=== PATIENT | male | born 1970 | race Caucasian/White ===

== ENCOUNTER 2020-06-21 10:45 | Day surgery (SDC) | payer BC ==
[~2020-06-21 10:45] MED LIST: Sodium Chloride 0.9% 10 ML Syringe FLUSH PRN
[2020-06-21] MEDS: Lactated Ringers 1,000 ML IV SCH (11:00)
[2020-06-21] MEDS ORDERED: Propofol 200 MG/20 ML SDV ONE ×2 (11:50→12:49)
--- NOTE | 2020-06-21 15:03 | OR ---
DATE OF SURGERY: 06/21/2020. REFERRING PROVIDER: Dr. Steph Hawkins. PRE-OPERATIVE DIAGNOSIS: Screening colonoscopy. This is the patient's first colonoscopy. He denies any known family history of colon cancer. POST-OPERATIVE DIAGNOSES: 1. Single 2 mm polyp at 30 cm, removed using cold forceps. However, tissue sample was not able to be retrieved after forceps was removed as it seemingly came off as the forceps was brought back through the scope. There were no worrisome features to this tiny polyp. 2. Minimal sigmoid diverticulosis. 3. Normal-appearing distal ileum. PROCEDURE: Colonoscopy with polypectomy x1 using cold forceps. SURGEON: Héctor Alvarez M.D. ANESTHESIA: Monitored anesthesia care. BOWEL PREP: Good. Ramon is a 50-year-old male who was brought to the endoscopy suite after discussing risks and benefits of the procedure. Informed consent was obtained for conscious sedation and colonoscopy with or without biopsy and/or polypectomy. We also discussed possibility of missed lesions. Pre-procedure exam was unremarkable. IV, oxygen, and monitors were placed. The patient was placed in the left lateral decubitus position. Sedation was administered and a digital rectal exam was performed and unremarkable. Colonoscope was passed into the rectum and slowly advanced all the way to the cecum. Cecum was viewed and photographed. The ileocecal valve was intubated and distal ileum was normal in appearance. The colonoscope was slowly withdrawn and the mucosa was closed observed in a direct circumferential manner. The ascending colon was unremarkable. The transverse colon was unremarkable. The descending colon was unremarkable. The sigmoid colon revealed some minimal diverticulosis. There was 1 tiny 2 mm polyp noted at 30 cm. This was removed using 2 bites of the cold forceps. However, upon removal of the forceps through the scope, tissue sample was lost, not able to be retrieved for path. My suspicion is this either very small adenomatous polyp versus hyperplastic type polyp. Retroflexion was performed and rectal mucosa was unremarkable. Scope was removed. The patient tolerated the procedure well. The patient was monitored until that baseline status. Discharge instructions were reviewed and the patient was discharged in good condition. COMPLICATIONS: None. TOTAL TIME: 27 minutes. ESTIMATED BLOOD LOSS: Less than 1 mL. RECOMMENDATIONS/FOLLOW-UP: Given the single tiny polyp which was not able to be retrieved for path, I would recommend repeating colonoscopy in 6 to 7 years to be on the safe side. I would like to kindly thank Dr. Hawkins for this referral. DMB: 06/21/2020 13:48:38 MODL: 06/21/2020 14:47:01 /[id number]
== END 2020-06-21 14:10 | disposition home or self-care (01) ==
LOC: VM.SDS 10:45
PROVIDERS: ATTEND Family Medicine
DX: Z12.11 Encounter for screening for malignant neoplasm of colon (principal); K63.5 Polyp of colon; K57.30 Diverticulosis of large intestine without perforation or abscess without bleeding; M25.511 Pain in right shoulder; H91.93 Unspecified hearing loss, bilateral; Z79.899 Other long term (current) drug therapy; Z98.890 Other specified postprocedural states
CPT/HCPCS: 00812; J2704; J7120

== ENCOUNTER 2023-09-04 12:16 | Emergency (ER) | payer BC ==
[2023-09-04 12:40] LABS: BASOPHILS PERCENT AUTO 0.2 % (0.2-1.2); EOSINOPHILS ABSOLUTE AUTO 0.1 x10^3/uL (0.0-0.5); EOSINOPHILS PERCENT AUTO 1.3 % (0.0-4.0); HEMATOCRIT 43.7 % (40.0-52.0); HEMOGLOBIN 15.2 g/dL (14.0-18.0); LYMPHOCYTES ABSOLUTE AUTO 1.5 x10^3/uL (1.0-4.8); LYMPHOCYTES PERCENT AUTO 32.5 % (25.0-50.0); MEAN CORPUSCULAR HEMOGLOBIN 30.8 pg (26.0-32.0); MEAN CORPUSCULAR HGB CONC 34.8 g/dL (32.0-36.0); MEAN CORPUSCULAR VOLUME 88.6 fL (78.0-93.0); MONOCYTES ABSOLUTE AUTO 0.3 x10^3/uL (0.0-0.8); MONOCYTES PERCENT AUTO 6.1 % (2.0-11.0); NEUTROPHILS ABSOLUTE AUTO 2.8 x10^3/uL (1.8-7.7); NEUTROPHILS PERCENT AUTO 59.9 % (50.0-80.0); PLATELET COUNT,PLT 197 x10^3/uL (130-400); RED BLOOD CELL COUNT 4.93 x10^6/uL (4.5-6.0); WHITE BLOOD CELL COUNT,WBC 4.6 x10^3/uL (4.0-10.0)
[2023-09-04 13:03] LABS: A/G RATIO 1.44; ALANINE AMINOTRANSFERASE,ALT 45 U/L (16-63); ALBUMIN 4.6 g/dL (3.4-5.0); ALKALINE PHOSPHATASE 85 U/L (46-116); ANION GAP 14.9 mmol/L (5-15); ASPARTATE AMNIOTRANSFERASE,AST 52 U/L (15-37); BILIRUBIN TOTAL 1.7 mg/dL (0.2-1.0); BLOOD UREA NITROGEN,BUN 14 mg/dL (7-18); CALCIUM 9.4 mg/dL (8.5-10.1); CARBON DIOXIDE,CO2 26 mmol/L (21-32); CHLORIDE,CL 104 mmol/L (98-107); CREATININE 0.9 mg/dL (0.70-1.30); ESTIMATED GFR 102 mL/min (>=60); GLUCOSE RANDOM 88 mg/dL (70-99); LIPASE 48 U/L (19-71); POTASSIUM,K 3.9 mmol/L (3.5-5.1); PRO B-TYPE NATRIUR PEPT,BNPPRO 58 pg/mL (<=125); PROTEIN TOTAL,TP 7.8 g/dL (6.4-8.2); SODIUM,NA 141 mmol/L (136-145)
[2023-09-04] MEDS: Sodium Chloride 0.9% 1,000 ML IV ONE (13:15)
[2023-09-04 13:21] LABS: APPEARANCE,URINE CLEAR (CLEAR); BILIRUBIN,URINE NEGATIVE (NEGATIVE); COLOR,URINE YELLOW (YELLOW); GLUCOSE,URINE NEGATIVE (NEGATIVE); KETONES,URINE NEGATIVE (NEGATIVE); LEUKOCYTE ESTERASE,URINE NEGATIVE (NEGATIVE); NITRITE,URINE NEGATIVE (NEGATIVE); OCCULT BLOOD,URINE TRACE-LYSED (NEGATIVE); PROTEIN,URINE NEGATIVE (NEGATIVE); UROBILINOGEN,URINE 0.2 EU/dL (0.2)
[2023-09-04 13:25] LABS: PROTHROMBIN TIME 9.9 SEC (8.9-11.5)
[2023-09-04 13:35] LABS: BACTERIA,URINE RARE /HPF (NOT SEEN); RBC,URINE 0-5 /HPF (NOT SEEN); SQUAMOUS EPITHELIAL CELLS,UR RARE /HPF (NOT SEEN); WBC,URINE NOT SEEN /HPF (NOT SEEN)
== END 2023-09-04 14:30 | disposition home or self-care (01) ==
LOC: VM.ED 12:16
DX: M60.9 Myositis, unspecified (principal); E03.9 Hypothyroidism, unspecified; Z79.899 Other long term (current) drug therapy
CPT/HCPCS: 71045; 80053; 81001; 82550; 83690; 83880; 84443; 84484; 85025; 85610; 93005; 96360; 99284; J7030